=== PATIENT | female | born 1995 | race Caucasian/White ===

== ENCOUNTER 2018-06-01 19:24 | Emergency (ER) | payer BC ==
[2018-06-01] MEDS ORDERED: MOTRIN 600 MG PO ONE (19:43)
--- NOTE | 2018-06-01 19:46 | ERPHSYRPT ---
- History of Present Illness Time Seen by Provider: 06/01/18 19:40 Source: patient Exam Limitations: no limitations Physician History: 22 y/o female comes to the ER with complaints of dysuria, polyuria and abdominal pressure for the past 2 days. Pt states that she feels as if she is having a UTI. Pt admits to some nausea, dizziness and headache. Pt denies any fever, chills, vomiting, diarrhea, constipation. Last period was 1 week ago. Timing/Duration: yesterday Activites at Onset: none Quality: pressure Onset Location: periumbilical Pain Radiation: right flank Severity of Pain-Max: moderate Severity of Pain-Current: moderate Prior abdominal problems: none Sexual intercourse history: non-contributory Modifying Factors: Improves With: nothing Associated Symptoms: abdominal pain, dysuria, polyuria, urinary frequency Allergies/Adverse Reactions: clarithromycin [From Biaxin] Allergy (Verified 06/01/18 19:59) - Review of Systems Constitutional: No Fever, No Chills Eyes: No Symptoms Ears, Nose, & Throat: No Symptoms Respiratory: No Cough, No Dyspnea Cardiac: No Chest Pain, No Edema, No Syncope Abdominal/Gastrointestinal: No Abdominal Pain, No Nausea, No Vomiting, No Diarrhea Genitourinary Symptoms: Dysuria, Frequency, Urgency, Flank Pain, Vaginal Discharge, No Hematuria, No Vaginal Bleeding, No Vaginal Itching Musculoskeletal: Back Pain, No Neck Pain Skin: No Rash Neurological: No Dizziness, No Focal Weakness, No Sensory Changes Psychological: No Symptoms Endocrine: No Symptoms All Other Systems: Reviewed and Negative - Nursing Vital Signs Nursing Vital Signs: Initial Vital Signs Temperature 99.4 F 06/01/18 19:41 Pulse Rate 85 06/01/18 19:41 Respiratory Rate 20 06/01/18 19:41 Blood Pressure 137/91 06/01/18 19:41 O2 Sat by Pulse Oximetry 100 06/01/18 19:41 Pain Scale Pain Intensity 6 - Physical Exam General Appearance: no apparent distress, alert Eye Exam: PERRL/EOMI, eyes nml inspection Ears, Nose, Throat Exam: normal ENT inspection, TMs normal, pharynx normal, moist mucous membranes Neck Exam: normal inspection, non-tender, supple, full range of motion Respiratory Exam: normal breath sounds, lungs clear, No respiratory distress Cardiovascular Exam: regular rate/rhythm, normal heart sounds, normal peripheral pulses Gastrointestinal/Abdomen Exam: soft, normal bowel sounds, No tenderness, No distention, No mass Back Exam: normal inspection, normal range of motion, No CVA tenderness, No vertebral tenderness Extremity Exam: normal inspection, normal range of motion, pelvis stable Neurologic Exam: alert, oriented x 3, cooperative, silk screen processor II-XII nml as tested, normal mood/affect, sensation nml, No motor deficits Skin Exam: normal color, warm, dry Lymphatic Exam: No adenopathy - Course Nursing assessment & vital signs reviewed: Yes Ordered Tests: Active Orders 24 hr Category Date Time Status HCG,QUALITATIVE URINE Stat Lab 06/01/18 20:00 Completed UA W/RFX UR CULTURE Stat Lab 06/01/18 20:00 Completed Medication Summary Discontinued Medications Generic Name Dose Route Start Last Admin Trade Name Vince PRN Reason Stop Dose Admin Ibuprofen 600 mg 06/01/18 19:43 06/01/18 19:58 Motrin 600 Mg PO 06/01/18 19:44 600 mg STAT ONE Administration Ibuprofen Confirm 06/01/18 19:55 Motrin 600 Mg Administered 06/01/18 19:56 Dose 600 mg .ROUTE .Ingenious Med ONE Lab/Rad Data: Laboratory Results 06/01/18 06/01/18 Range/Units 20:00 20:00 Ur Collection Type CLEAN CATCH Urine Color YELLOW (YELLOW) Urine Appearance CLOUDY (CLEAR) Urine pH 6.0 (5-6) Ur Specific [place] 1.020 (1.005-1.025) Urine Protein 100 (Negative) Urine Ketones NEGATIVE (NEGATIVE) Urine Blood 250 (0-5) Ravi/ul Urine Nitrite POSITIVE (NEGATIVE) Urine Bilirubin NEGATIVE (NEGATIVE) Urine Urobilinogen NORMAL (0-1) mg/dL Ur Leukocyte Esterase 2+ (NEGATIVE) Urine Culture Reflexed YES (NO) Urine Glucose NEGATIVE (NEGATIVE) mg/dL Urine HCG, Qual NEGATIVE (Negative) Specimen Received 06/01/181999 - Progress Progress: improved Progress Note: 06/01/18 20:28 Pt has a UTI and will be sent home on 5 days of bactrim. - Departure Time of Disposition: 20:28 Departure Disposition: Home Clinical Impression: UTI (urinary tract infection) Qualifiers: Urinary tract infection type: acute cystitis Hematuria presence: without hematuria Qualified Code(s): N30.00 - Acute cystitis without hematuria Condition: Stable Critical Care Time: No Referrals: ILIANA DIAZ [Primary Care Provider] - Instructions: Urinary Tract Infection, Adult (DC) Additional Instructions: Follow up with your primary care doctor in the next few days if there is no improvement. Prescriptions: Sulfamethoxazole/Trimethoprim [Bactrim Ds Tablet] 1 each PO BID #9 tablet
[2018-06-01] MEDS ORDERED: MOTRIN 600 MG ONE (19:55)
[2018-06-01 20:24] LABS: Appearance CLOUDY (CLEAR); Bilirubin NEGATIVE (NEGATIVE); Blood 250 Ery/ul (0-5); Glucose NEGATIVE (NEGATIVE); Ketones NEGATIVE (NEGATIVE); Leukocyte Esterase 2+ (NEGATIVE); Nitrite POSITIVE (NEGATIVE); Protein,Urine Dip 100 (Negative); Urobilinogen NORMAL mg/dL (0-1)
[2018-06-01] MEDS ORDERED: BACTRIM DS TABLET PO STA (20:28)
[2018-06-01 20:33] LABS: WBC >100 /HPF (0-5)
[2018-06-01 20:34] LABS: Bacteria PACKED /HPF (NEGATIVE); Epithelial Cells FEW /HPF (FEW); RBC >100 /HPF (0-2)
[2018-06-01] MEDS ORDERED: BACTRIM DS TABLET PO ONE (20:39)
[2018-06-01 20:53] VITALS: BP 130/88; PULSE 80; O2SAT 99
== END 2018-06-01 20:52 | disposition home or self-care (01) ==
LOC: ED 19:24
DX: N39.0 Urinary tract infection, site not specified (principal)
CPT/HCPCS: 81000; 84703; 87077; 87086; 87186; 99283; A9270-GY

== ENCOUNTER 2025-09-04 20:15 | Emergency (ER) | payer BC ==
[2025-09-04 20:31] VITALS: TEMP 99.3
--- NOTE | 2025-09-04 20:35 | ERPHSYRPT ---
- History of Present Illness Time Seen by Provider: 09/04/25 20:18 Source: patient Exam Limitations: no limitations Patient Subjective Stated Complaint: pt reports low back/flank pain bilaterally with urinary frequency and sometimes painful urination. pt reports history of recurrent UTI. Triage Nursing Assessment: pt is aox3, pupils perrl, afebrile, resps easy and non labored, cap refill < 3 seconds, radial pulses strong and equal, abd soft non tender, pt skin pink warm dry. Physician History: 29-year-old female presents to the emergency room for urinary frequency urgency and dysuria for the past day and a half patient reports prior history of UTIs denies any fevers denies any nausea vomiting diarrhea denies any chest pain or shortness of breath denies any rash patient is ambulatory at baseline now in ED for further eval Timing/Duration: yesterday Activites at Onset: none Quality: aching Onset Location: suprapubic Pain Radiation: urethral Severity of Pain-Max: mild Severity of Pain-Current: mild Prior abdominal problems: none Sexual intercourse history: non-contributory Associated Symptoms: dysuria, urinary frequency, No fever, No polyuria, No loss of bladder control, No lower back pain, No vaginal discharge, No vaginal fluid leakage Allergies/Adverse Reactions: amoxicillin [From Augmentin] Allergy (Verified 09/04/25 20:32) Hives clarithromycin [From Biaxin] Allergy (Verified 09/04/25 20:31) clavulanic acid [From Augmentin] Allergy (Verified 09/04/25 20:32) Hives Hx Tetanus, Diphtheria Vaccination/Date Given: Yes Hx Influenza Vaccination/Date Given: No Hx Pneumococcal Vaccination/Date Given: No Travel Risk - International Travel Have you traveled outside of the country in past 3 weeks: No - Emerging Infectious Disease Are you exhibiting symptoms associated with any current EIDs: No - Review of Systems Constitutional: No Fever, No Chills Eyes: No Symptoms Ears, Nose, & Throat: No Symptoms Respiratory: No Cough, No Dyspnea Cardiac: No Chest Pain, No Edema, No Syncope Abdominal/Gastrointestinal: No Abdominal Pain, No Nausea, No Vomiting, No Diarrhea Genitourinary Symptoms: Dysuria, Frequency Musculoskeletal: No Back Pain, No Neck Pain Skin: No Rash Neurological: No Dizziness, No Focal Weakness, No Sensory Changes Psychological: No Symptoms Endocrine: No Symptoms All Other Systems: Reviewed and Negative - Past Medical History Pertinent Past Medical History: No Other Medical History: recurring UTI - Past Surgical History Past Surgical History: Yes - Female History Hx Last Menstrual Period: 08/06/25 Hx Now: No - Social History Smoking Status: Never smoker Exposure to second hand smoke: No Drug Use: none - Social Determinants of Health Will the patient participate in the screening: Yes Do you worry about a steady place to live?: No Do you have any problems with any of the following?: No known problems In the past 12 months,have you had to go without utilities?: No Transportation Issues: No Has anyone in your support network made you feel unsafe?: No Have you or anyone in your house had to go w/o enough food: No - Nursing Vital Signs Nursing Vital Signs: Initial Vital Signs Temperature 99.3 F 09/04/25 20:20 Pulse Rate 87 09/04/25 20:20 Respiratory Rate 18 09/04/25 20:20 Blood Pressure 151/86 09/04/25 20:20 O2 Sat by Pulse Oximetry 97 09/04/25 20:20 Pain Scale Pain Intensity 5 - Physical Exam General Appearance: no apparent distress, alert Eye Exam: PERRL/EOMI, eyes nml inspection Ears, Nose, Throat Exam: normal ENT inspection, TMs normal, pharynx normal, moist mucous membranes Neck Exam: normal inspection, non-tender, supple, full range of motion Respiratory Exam: normal breath sounds, lungs clear, No respiratory distress Cardiovascular Exam: regular rate/rhythm, normal heart sounds, normal peripheral pulses Gastrointestinal/Abdomen Exam: soft, No tenderness, No mass Back Exam: normal inspection, normal range of motion, No CVA tenderness, No vertebral tenderness Extremity Exam: normal inspection, normal range of motion, pelvis stable Neurologic Exam: alert, oriented x 3, cooperative, tin flopper II-XII nml as tested, normal mood/affect, sensation nml, No motor deficits Skin Exam: normal color, warm, dry Lymphatic Exam: No adenopathy SpO2: 97 Ordered Tests: Active Orders 24 hr Category Date Time Status CULTURE,URINE Stat Lab 09/04/25 20:29 Received HCG QUALITATIVE, URINE Stat Lab 09/04/25 20:31 Completed UA W/RFX UR CULTURE Stat Lab 09/04/25 20:29 Completed Lab/Rad Data: Laboratory Results 09/04/25 09/04/25 Range/Units 20:31 20:29 Urine Color Yellow (Yellow) Urine Appearance Clear (Clear) Urine pH 6.5 (4.6-8.0) Ur Specific [place] <=1.005 (1.005-1.030) Urine Protein Negative (Negative) Urine Glucose (UA) Negative (Negative) mg/dL Urine Ketones Negative (Negative) Urine Blood Moderate A (Negative) Urine Nitrite Negative (Negative) Urine Bilirubin Negative (Negative) Urine Urobilinogen 0.2 (0.2) mg/dL Ur Leukocyte Esterase Moderate A (Negative) U Hyaline Cast (Auto) NONE SEEN (0-2) /LPF Urine Microscopic RBC 0-2 (0-5) /HPF Urine Microscopic WBC 11-20 A (0-5) /HPF Ur Epithelial Cells None Seen (None Seen) /HPF Urine Bacteria None Seen (None Seen) /HPF Urine Culture Reflexed YES (NO) Urine HCG, Qual NEGATIVE (NEGATIVE) - Departure Departure Disposition: Home Clinical Impression: UTI (urinary tract infection) Qualifiers: Urinary tract infection type: site unspecified Hematuria presence: with hematuria Qualified Code(s): N39.0 - Urinary tract infection, site not specified; R31.9 - Hematuria, unspecified Condition: Stable Critical Care Time: No Referrals: MIA MCKENNA MD [Primary Care Provider, [facility]] - Follow up/PCP as directed Instructions: Flank Pain, Urinary tract infections in adults Prescriptions: Cephalexin Mh 500 mg [Keflex 500 mg] 500 mg PO TID 7 Days #21 cap
[2025-09-04 20:36] LABS: HCG URINE TEST NEGATIVE (NEGATIVE)
[2025-09-04 20:41] LABS: Glucose, Urine Negative (Negative); Protein,Urine Dip Negative (Negative); RBC 0-2 /HPF (0-5)
[2025-09-04] MEDS ORDERED: KEFLEX 500 MG ONE (20:50)
[2025-09-04] MEDS: KEFLEX 500 MG PO ONE (20:51)
[2025-09-04 21:43] VITALS: BP 122/81; PULSE 84; RESP 16; O2SAT 100
== END 2025-09-04 21:30 | disposition home or self-care (01) ==
LOC: ED 20:15
DX: N39.0 Urinary tract infection, site not specified (principal); R31.9 Hematuria, unspecified; R35.0 Frequency of micturition; R30.0 Dysuria; Z79.899 Other long term (current) drug therapy